=== PATIENT | male | born 1985 | race Caucasian/White ===

== ENCOUNTER → 2023-11-15 07:53 | Outpatient (CLI) | payer OTHER, SELFPAY ==
--- NOTE | 2023-11-15 | DI.RAD.S_ITS ---
PROCEDURE: XR ANKLE RT 2V INDICATIONS: Other specified arthritis, right ankle and foot TECHNIQUE: 2 views of the ankle were acquired. COMPARISON: None. FINDINGS: Bones: No fractures or dislocations. Ankle mortise is normally aligned. No suspicious bony lesions. Soft tissues: No tibiotalar joint effusion. Achilles tendon appears normal. IMPRESSION: No acute bony abnormality or significant effusion. No significant arthritic changes. Dictated by: Richie Ledbetter M.D. on 11/15/2023 at 8:38 Approved by: Richie Ledbetter M.D. on 11/15/2023 at 8:39
== END ==
LOC: RAD 07:56
PROVIDERS: Referring Provider Chiropractor; Visit Provider Chiropractor
DX: M13.871 Other specified arthritis, right ankle and foot (principal)
CPT/HCPCS: 73600